=== PATIENT | male | born 1945 | race Caucasian/White ===

== ENCOUNTER 2023-12-19 16:06 | Inpatient (IN) | payer OTHER, MEDICAID ==
[~2023-12-19] VITALS: Ht 162.6 cm; Wt 74.4 kg
[2023-12-19 16:06] VITALS: BP_SYST 138; PULSE 132; RESP 20; TEMP 101.9; O2SAT 93
[2023-12-19] MEDS ORDERED: HEPARIN SODIUM,PORCINE 5,000 UNITS/ML VIAL IVP ONE (16:30)
[2023-12-19] MEDS ORDERED: HEPARIN 25,000 UNITS/D5W 250ML 250 ML IV ONE (16:30)
[2023-12-19 16:58] LABS: HEMATOCRIT 42.5 % (36-54); HEMOGLOBIN 14.2 g/dL (14.0-18.0); MEAN CORPUSCULAR HEMOGLOBIN 29 pg (27-31); MEAN CORPUSCULAR HGB CONC 33 % (32-36); MEAN CORPUSCULAR VOLUME 88 fL (79.0-98.0); PLATELET COUNT (AUTO) 206 K/uL (130-430); RED BLOOD CELL COUNT(AUTO) 4.84 MIL/uL (4.2-6.2); RED CELL DISTRIBUTION WIDTH 14.9 % (9.0-15.0); WHITE BLOOD COUNT (AUTO) 8.3 K/uL (4.8-10.8)
[2023-12-19 17:17] LABS: ANION GAP 22 (5-15); CALCIUM 8.8 mg/dL (8.4-11.0); CARBON DIOXIDE 15 mmol/L (23-29); CHLORIDE 98 mmol/L (98-107); CREATININE 1.55 mg/dL (0.55-1.30); GLUCOSE 194 mg/dL (74-106); POTASSIUM 3.9 mmol/L (3.5-5.1); SODIUM SERUM 135 mmol/L (136-145); UREA NITROGEN, BLOOD 29 mg/dL (8-21)
[2023-12-19 17:22] LABS: ALANINE AMINOTRANSFERASE 11 U/L (12-78); ALBUMIN 3.4 g/dL (3.4-4.8); ASPARTATE AMINOTRANSFERASE 39 U/L (10-37); BILIRUBIN,DIRECT 0.2 mg/dL (0.0-0.3); TOTAL BILIRUBIN 0.8 mg/dL (0.0-1.0); TOTAL PROTEIN, SERUM 8.5 g/dL (6.4-8.3)
[2023-12-19] MEDS: NACL 0.9% 1,000 ML IV ONE (17:36)
[2023-12-19 17:42] LABS: BLOOD GAS PCO2 22.9 mmHg (32.0-45.0); BLOOD GAS PH 7.327 (7.350-7.450); BLOOD GAS PO2 94.2 mmHg (75.0-100.0)
[2023-12-19 17:43] LABS: ABG O2 SAT% ESTIMATE 96.9 % (94.0-100.0); ALLEN'S TEST POSITIVE (P); BLOOD GAS HCO3 11.7 mmol/L (21.0-27.0)
[2023-12-19 17:52] LABS: BILIRUBIN,URINE NEGATIVE (NEGATIVE); BLOOD, URINE 1+ (NEGATIVE); CLARITY/URINE CLEAR (CLEAR); COLOR,URINE YELLOW (YELLOW); GLUCOSE,URINE 3+ (NEGATIVE); KETONES,URINE 3+ (NEGATIVE); LEUKOCYTE ESTERASE ,URINE NEGATIVE (NEGATIVE); NITRITE, URINE NEGATIVE (NEGATIVE); PROTEIN URINE TRACE (NEGATIVE); UROBILINOGEN,URINE 0.2 (0.2-1.0)
[2023-12-19 18:24] LABS: BACTERIA,URINE RARE /HPF (None Seen)
[2023-12-19] MEDS: IPRATROPIUM/ALBUTEROL SULFATE 3 ML AMPUL.NEB (DUONEB) INH ONE (18:26)
[2023-12-19] MEDS ORDERED: DULO30CA52 PO (18:29)
[2023-12-19] MEDS ORDERED: MIDO5TAB4 PO (18:29)
[2023-12-19] MEDS ORDERED: CYAN-45 PO (18:29)
[2023-12-19] MEDS ORDERED: EMPA25TA PO (18:29)
[2023-12-19] MEDS ORDERED: METF-1069 PO (18:29)
[2023-12-19] MEDS ORDERED: ASPI-1393 PO (18:29)
[2023-12-19] MEDS ORDERED: DULA4.5P SUBCUT (18:29)
[2023-12-19] MEDS ORDERED: ICOS1CAP PO (18:29)
[2023-12-19] MEDS ORDERED: FAMO40TA7 PO (18:29)
[2023-12-19] MEDS ORDERED: TAMS0.4C96 PO (18:29)
[2023-12-19] MEDS ORDERED: FERROUS (18:29)
[2023-12-19] MEDS ORDERED: ESCI-6 PO (18:29)
[2023-12-19] MEDS ORDERED: SIMV-345 PO (18:29)
[2023-12-19] MEDS ORDERED: PREG150C47 PO (18:29)
[2023-12-19 18:32] LABS: COVID19 ANTIGEN SOFIA FIA NEGATIVE (NEGATIVE)
[2023-12-19 18:33] LABS: INFLUENZA TYPE B NEGATIVE (NEGATIVE)
[2023-12-19 18:41] LABS: INFLUENZA TYPE A POSITIVE (NEGATIVE)
[2023-12-19] MEDS ORDERED: cefTRIAXone 1 GM in D5W 50 ML IV ONE (18:45)
[2023-12-19] MEDS ORDERED: cefTRIAXone 1 GM VIAL ONE (18:56)
[2023-12-19 18:59] LABS: BAND % (MANUAL) 18 % (0-6); BASOPHILS % (MANUAL) 0 % (0-2); EOSINOPHILS % (MANUAL) 0 % (0-7); LYMPHOCYTES % (MANUAL) 4 % (20-46); MONOCYTES % (MANUAL) 3 % (0-11); PLATELET ESTIMATE ADEQUATE (ADEQUATE)
[2023-12-19] MEDS ORDERED: D5NS 1,000 ML IV SCH (19:00)
[2023-12-19] MEDS: NACL 0.9% 1,000 ML IV SCH (20:15)
[2023-12-19 20:50] VITALS: BP_SYST 110; PULSE 121; RESP 20; TEMP 98.9
[2023-12-19] MEDS ORDERED: ACETAMINOPHEN 325 MG TABLET PO PRN (22:30)
[2023-12-19] MEDS ORDERED: HYDROcodone/ACETAMIN 5-325 MG TAB (NORCO/ VICODIN) PO PRN (22:30)
[2023-12-19] MEDS ORDERED: NALOXONE HCL 0.4 MG/ML AMP (NARCAN) IVP PRN ×2 (22:30)
[2023-12-19] MEDS ORDERED: ONDANSETRON HCL 4 MG/2 ML VIAL IVP PRN (22:30)
[2023-12-19] MEDS ORDERED: HYDROcodone/ACETAMIN 10-325 MG TAB PO PRN (22:30)
[2023-12-20] VITALS (8 sets, daily range): BP systolic 103–132; PULSE 61–134; RESP 17–21; TEMP 97.2–99.3; O2SAT 93–98
[2023-12-20 05:05] LABS: BASOPHILS % (AUTO) 0.1 % (0.0-2.0); HEMATOCRIT 40.3 % (36-54); HEMOGLOBIN 13.5 g/dL (14.0-18.0); LYMPHOCYTES # (AUTO) 0.5 K/uL (1.0-5.5); LYMPHOCYTES % (AUTO) 4.7 % (20.5-51.5); MEAN CORPUSCULAR HEMOGLOBIN 30 pg (27-31); MEAN CORPUSCULAR HGB CONC 34 % (32-36); MEAN CORPUSCULAR VOLUME 88 fL (79.0-98.0); MONOCYTES % (AUTO) 10.3 % (1.7-9.3); NEUTROPHILS # (AUTO) 8.4 K/uL (1.8-7.7); NEUTROPHILS % (AUTO) 84.9 % (40.0-70.0); PLATELET COUNT (AUTO) 222 K/uL (130-430); RED BLOOD CELL COUNT(AUTO) 4.57 MIL/uL (4.2-6.2); WHITE BLOOD COUNT (AUTO) 9.9 K/uL (4.8-10.8)
[2023-12-20 05:28] LABS: ANION GAP 23 (5-15); CALCIUM 8.4 mg/dL (8.4-11.0); CARBON DIOXIDE 12 mmol/L (23-29); CHLORIDE 100 mmol/L (98-107); CREATININE 1.74 mg/dL (0.55-1.30); GLUCOSE 208 mg/dL (74-106); POTASSIUM 4.2 mmol/L (3.5-5.1); SODIUM SERUM 135 mmol/L (136-145); UREA NITROGEN, BLOOD 30 mg/dL (8-21)
[2023-12-20] MEDS ORDERED: FERR-69 PO (06:57)
[2023-12-20] MEDS: INSULIN REGULAR, HUMAN 100 UNITS/ML, 3 ML VIAL (humuLIN R) SUBCUT PRN (07:01)
[2023-12-20] MEDS: CYANOCOBALAMIN (VITAMIN B-12) 1,000 MCG TABLET PO SCH (08:19)
[2023-12-20] MEDS: TAMSULOSIN HCL 0.4 MG CAP PO SCH (08:19)
[2023-12-20] MEDS: ASPIRIN 81 MG TABLET(ECOTRIN) PO SCH (08:19)
[2023-12-20] MEDS: FAMOTIDINE 20 MG TABLET PO SCH (08:20)
[2023-12-20] MEDS: CITALOPRAM HYDROBROMIDE 20 MG TABLET PO SCH (08:20)
[2023-12-20] MEDS: MIDODRINE HCL 5 MG TABLET (PROAMATINE) PO SCH (08:20)
[2023-12-20] MEDS: DULoxetine HCL 30 MG CAPSULE.DR (CYMBALTA) PO SCH (08:20)
[2023-12-20] MEDS: PREGABALIN 75 MG CAPSULE (LYRICA) PO SCH (08:20)
[2023-12-20] MEDS ORDERED: NON-FORMULARY MEDICATION (Icosapent Ethyl (Vascepa) 2 CAP) PO SCH (09:00)
[2023-12-20] MEDS: EMPAGLIFLOZIN 10 MG TABLET PO SCH (11:24)
[2023-12-20] MEDS: AZITHROMYCIN 500 MG in NS 250 ML IV ONE (13:19)
[2023-12-20] MEDS: OSELTAMIVIR PHOSPHATE 6 MG/1 ML, 60 ML SUSP PO ONE (13:25)
[2023-12-20] MEDS: SIMVASTATIN 40 MG TABLET PO SCH (21:23)
[2023-12-20] MEDS: cefTRIAXone 1 GM IVPB PREMIX 50 ML IV SCH (21:24)
[2023-12-20] MEDS: OSELTAMIVIR PHOSPHATE 6 MG/1 ML, 60 ML SUSP PO SCH (21:24)
[2023-12-20] MEDS: LORazepam 2 MG/ML VIAL IVP PRN (21:25)
[2023-12-20] MEDS: FUROSEMIDE 20 MG/2 ML VIAL IVP ONE (22:16)
[2023-12-20] MEDS: IPRATROPIUM/ALBUTEROL SULFATE 3 ML AMPUL.NEB (DUONEB) ONE (22:37)
[2023-12-21] VITALS (8 sets, daily range): BP systolic 94–109; PULSE 94–115; RESP 18–24; TEMP 96.5–97.1; O2SAT 96–98
[2023-12-21 04:29] LABS: ERYTHROCYTE SEDIMENTATION RATE 121 MM/HR (0-15)
[2023-12-21 04:46] LABS: BASOPHILS % (AUTO) 0.1 % (0.0-2.0); HEMATOCRIT 39.7 % (36-54); HEMOGLOBIN 13.1 g/dL (14.0-18.0); LYMPHOCYTES # (AUTO) 0.7 K/uL (1.0-5.5); LYMPHOCYTES % (AUTO) 5.5 % (20.5-51.5); MEAN CORPUSCULAR HEMOGLOBIN 29 pg (27-31); MEAN CORPUSCULAR HGB CONC 33 % (32-36); MEAN CORPUSCULAR VOLUME 88 fL (79.0-98.0); MONOCYTES # (AUTO) 1.5 K/uL (0.0-1.0); MONOCYTES % (AUTO) 11.3 % (1.7-9.3); NEUTROPHILS # (AUTO) 10.9 K/uL (1.8-7.7); NEUTROPHILS % (AUTO) 83.1 % (40.0-70.0); PLATELET COUNT (AUTO) 254 K/uL (130-430); RED BLOOD CELL COUNT(AUTO) 4.54 MIL/uL (4.2-6.2); RED CELL DISTRIBUTION WIDTH 15.2 % (9.0-15.0); WHITE BLOOD COUNT (AUTO) 13.1 K/uL (4.8-10.8)
[2023-12-21 05:36] LABS: ANION GAP 29 (5-15); CALCIUM 8.5 mg/dL (8.4-11.0); CHLORIDE 102 mmol/L (98-107); GLUCOSE 183 mg/dL (74-106); POTASSIUM 4.1 mmol/L (3.5-5.1); SODIUM SERUM 138 mmol/L (136-145); TOTAL BILIRUBIN 0.5 mg/dL (0.0-1.0); UREA NITROGEN, BLOOD 38 mg/dL (8-21)
[2023-12-21 05:37] LABS: ALANINE AMINOTRANSFERASE 15 U/L (12-78); ALBUMIN 2.8 g/dL (3.4-4.8); ASPARTATE AMINOTRANSFERASE 37 U/L (10-37); PHOSPHORUS 4.5 mg/dL (2.7-4.5); TOTAL PROTEIN, SERUM 7.8 g/dL (6.4-8.3)
[2023-12-21 05:41] LABS: CARBON DIOXIDE 7 mmol/L (23-29)
[2023-12-21] MEDS: IPRATROPIUM/ALBUTEROL SULFATE 3 ML AMPUL.NEB (DUONEB) INH PRN (06:57)
[2023-12-21] MEDS: AZITHROMYCIN 500 MG in NS 250 ML IV SCH (08:54)
[2023-12-21] MEDS: SODIUM BICARBONATE 8.4% JECT 100 MEQ in D5W 1,000 ML IVP SCH (10:27)
[2023-12-22] VITALS (7 sets, daily range): BP systolic 96–115; PULSE 101–106; RESP 18–20; TEMP 97–98.8; O2SAT 93–98
[2023-12-22 07:21] LABS: BASOPHILS % (AUTO) 0.1 % (0.0-2.0); EOSINOPHILS % (AUTO) 0.1 % (0.0-4.0); LYMPHOCYTES # (AUTO) 0.9 K/uL (1.0-5.5); LYMPHOCYTES % (AUTO) 6.6 % (20.5-51.5); MEAN CORPUSCULAR HEMOGLOBIN 29 pg (27-31); MEAN CORPUSCULAR HGB CONC 33 % (32-36); MEAN CORPUSCULAR VOLUME 86 fL (79.0-98.0); MONOCYTES % (AUTO) 6.9 % (1.7-9.3); NEUTROPHILS # (AUTO) 12.3 K/uL (1.8-7.7); NEUTROPHILS % (AUTO) 86.3 % (40.0-70.0); PLATELET COUNT (AUTO) 251 K/uL (130-430); RED BLOOD CELL COUNT(AUTO) 4.91 MIL/uL (4.2-6.2); RED CELL DISTRIBUTION WIDTH 15.4 % (9.0-15.0); WHITE BLOOD COUNT (AUTO) 14.3 K/uL (4.8-10.8)
[2023-12-22 07:43] LABS: ERYTHROCYTE SEDIMENTATION RATE 93 MM/HR (0-15)
[2023-12-22 07:55] LABS: ANION GAP 15 (5-15); CALCIUM 8.7 mg/dL (8.4-11.0); CARBON DIOXIDE 19 mmol/L (23-29); CHLORIDE 101 mmol/L (98-107); CREATININE 1.49 mg/dL (0.55-1.30); GLUCOSE 191 mg/dL (74-106); PHOSPHORUS 1.9 mg/dL (2.7-4.5); POTASSIUM 3.5 mmol/L (3.5-5.1); SODIUM SERUM 135 mmol/L (136-145); UREA NITROGEN, BLOOD 33 mg/dL (8-21)
[2023-12-22 13:53] LABS: ABG O2 SAT% ESTIMATE 89.4 % (94.0-100.0); BLOOD GAS BASE EXCESS -0.7 mmol/L (-3.0-3.0); BLOOD GAS HCO3 20.5 mmol/L (21.0-27.0); BLOOD GAS PCO2 25.7 mmHg (32.0-45.0)
[2023-12-22 14:03] LABS: BLOOD GAS PH 7.519 (7.350-7.450); BLOOD GAS PO2 49.3 mmHg (75.0-100.0)
[2023-12-22] MEDS: HEPARIN SODIUM,PORCINE 5,000 UNITS/ML VIAL SUBCUT ONE (17:10)
[2023-12-22] MEDS: HEPARIN SODIUM,PORCINE 5,000 UNITS/ML VIAL SUBCUT SCH (23:42)
[2023-12-23] VITALS (8 sets, daily range): BP systolic 97–108; PULSE 75–105; RESP 18–20; TEMP 97.7–99.7; O2SAT 92–95
[2023-12-23 06:33] LABS: BASOPHILS % (AUTO) 0.3 % (0.0-2.0); EOSINOPHILS % (AUTO) 0.3 % (0.0-4.0); HEMATOCRIT 38.6 % (36-54); HEMOGLOBIN 13.1 g/dL (14.0-18.0); LYMPHOCYTES # (AUTO) 1.5 K/uL (1.0-5.5); LYMPHOCYTES % (AUTO) 15.3 % (20.5-51.5); MEAN CORPUSCULAR HEMOGLOBIN 29 pg (27-31); MEAN CORPUSCULAR HGB CONC 34 % (32-36); MEAN CORPUSCULAR VOLUME 84 fL (79.0-98.0); MONOCYTES % (AUTO) 9.9 % (1.7-9.3); NEUTROPHILS # (AUTO) 7.5 K/uL (1.8-7.7); NEUTROPHILS % (AUTO) 74.2 % (40.0-70.0); PLATELET COUNT (AUTO) 264 K/uL (130-430); RED BLOOD CELL COUNT(AUTO) 4.58 MIL/uL (4.2-6.2); RED CELL DISTRIBUTION WIDTH 15.1 % (9.0-15.0)
[2023-12-23 06:40] LABS: ANION GAP 13 (5-15); CALCIUM 8.4 mg/dL (8.4-11.0); CARBON DIOXIDE 23 mmol/L (23-29); CHLORIDE 103 mmol/L (98-107); CREATININE 1.18 mg/dL (0.55-1.30); GLUCOSE 129 mg/dL (74-106); PHOSPHORUS 2.2 mg/dL (2.7-4.5); POTASSIUM 3.3 mmol/L (3.5-5.1); SODIUM SERUM 139 mmol/L (136-145); UREA NITROGEN, BLOOD 26 mg/dL (8-21)
[2023-12-23 07:23] LABS: WHITE BLOOD COUNT (AUTO) 10.1 K/uL (4.8-10.8)
[2023-12-23 07:42] LABS: ERYTHROCYTE SEDIMENTATION RATE 102 MM/HR (0-15)
[2023-12-23] MEDS: PATIENT'S OWN CAP PO SCH (09:00)
[2023-12-23] MEDS: K PHOS 15 MM in NS 250 ML IV ONE (12:53)
[2023-12-24] VITALS (8 sets, daily range): BP systolic 100–113; PULSE 82–105; RESP 18–20; TEMP 96.7–98.6; O2SAT 90–96
[2023-12-24 04:42] LABS: ERYTHROCYTE SEDIMENTATION RATE 33 MM/HR (0-15)
[2023-12-24 04:53] LABS: BASOPHILS % (AUTO) 0.5 % (0.0-2.0); EOSINOPHILS # (AUTO) 0.1 K/uL (0.0-0.4); EOSINOPHILS % (AUTO) 1.3 % (0.0-4.0); HEMATOCRIT 36.6 % (36-54); HEMOGLOBIN 12.6 g/dL (14.0-18.0); LYMPHOCYTES # (AUTO) 2.1 K/uL (1.0-5.5); LYMPHOCYTES % (AUTO) 22.3 % (20.5-51.5); MEAN CORPUSCULAR HEMOGLOBIN 29 pg (27-31); MEAN CORPUSCULAR HGB CONC 34 % (32-36); MEAN CORPUSCULAR VOLUME 85 fL (79.0-98.0); MONOCYTES # (AUTO) 1.1 K/uL (0.0-1.0); MONOCYTES % (AUTO) 11.7 % (1.7-9.3); NEUTROPHILS # (AUTO) 5.9 K/uL (1.8-7.7); NEUTROPHILS % (AUTO) 64.2 % (40.0-70.0); PLATELET COUNT (AUTO) 301 K/uL (130-430); RED BLOOD CELL COUNT(AUTO) 4.33 MIL/uL (4.2-6.2); WHITE BLOOD COUNT (AUTO) 9.2 K/uL (4.8-10.8)
[2023-12-24 05:05] LABS: ALANINE AMINOTRANSFERASE 15 U/L (12-78); ALBUMIN 2.2 g/dL (3.4-4.8); ANION GAP 11 (5-15); ASPARTATE AMINOTRANSFERASE 31 U/L (10-37); CALCIUM 8.2 mg/dL (8.4-11.0); CARBON DIOXIDE 26 mmol/L (23-29); CHLORIDE 104 mmol/L (98-107); CREATININE 1.22 mg/dL (0.55-1.30); GLUCOSE 153 mg/dL (74-106); PHOSPHORUS 2.8 mg/dL (2.7-4.5); POTASSIUM 3.2 mmol/L (3.5-5.1); SODIUM SERUM 141 mmol/L (136-145); TOTAL BILIRUBIN 0.4 mg/dL (0.0-1.0); TOTAL PROTEIN, SERUM 6.9 g/dL (6.4-8.3); UREA NITROGEN, BLOOD 22 mg/dL (8-21)
[2023-12-24] MEDS: POTASSIUM CHLORIDE 20 MEQ TABLET.ER PO ONE (12:51)
[2023-12-25 00:22] VITALS: BP_SYST 103; PULSE 99; RESP 18; TEMP 97.7; O2SAT 93
[2023-12-25 05:21] LABS: BASOPHILS # (AUTO) 0.1 K/uL (0.0-0.2); EOSINOPHILS # (AUTO) 0.3 K/uL (0.0-0.4); HEMATOCRIT 35.4 % (36-54); HEMOGLOBIN 12.2 g/dL (14.0-18.0); LYMPHOCYTES # (AUTO) 2.1 K/uL (1.0-5.5); MEAN CORPUSCULAR HEMOGLOBIN 29 pg (27-31); MEAN CORPUSCULAR HGB CONC 34 % (32-36); MEAN CORPUSCULAR VOLUME 85 fL (79.0-98.0); MONOCYTES # (AUTO) 1.1 K/uL (0.0-1.0); MONOCYTES % (AUTO) 10.6 % (1.7-9.3); NEUTROPHILS # (AUTO) 6.8 K/uL (1.8-7.7); NEUTROPHILS % (AUTO) 65.4 % (40.0-70.0); PLATELET COUNT (AUTO) 339 K/uL (130-430); RED BLOOD CELL COUNT(AUTO) 4.17 MIL/uL (4.2-6.2); RED CELL DISTRIBUTION WIDTH 15.1 % (9.0-15.0); WHITE BLOOD COUNT (AUTO) 10.5 K/uL (4.8-10.8)
[2023-12-25 05:34] LABS: ERYTHROCYTE SEDIMENTATION RATE 104 MM/HR (0-15)
[2023-12-25 05:40] LABS: ANION GAP 13 (5-15); CALCIUM 8.1 mg/dL (8.4-11.0); CARBON DIOXIDE 24 mmol/L (23-29); CHLORIDE 105 mmol/L (98-107); CREATININE 0.99 mg/dL (0.55-1.30); GLUCOSE 119 mg/dL (74-106); POTASSIUM 3.5 mmol/L (3.5-5.1); SODIUM SERUM 142 mmol/L (136-145); UREA NITROGEN, BLOOD 20 mg/dL (8-21)
[2023-12-25 08:00] VITALS: BP_SYST 125; PULSE 101; RESP 16; TEMP 98.1; O2SAT 95
[2023-12-25 11:03] VITALS: BP_SYST 128; PULSE 100; RESP 16; TEMP 97.1; O2SAT 91
[2023-12-25 15:02] VITALS: BP_SYST 126; PULSE 103; RESP 16; TEMP 97.6; O2SAT 93
[2023-12-25 16:57] LABS: ABG O2 SAT% ESTIMATE 89.4 % (94.0-100.0); BLOOD GAS BASE EXCESS 1.4 mmol/L (-3.0-3.0); BLOOD GAS HCO3 23.7 mmol/L (21.0-27.0)
[2023-12-25 17:00] LABS: ALLEN'S TEST POSITIVE (P); BLOOD GAS PH 7.501 (7.350-7.450); BLOOD GAS PO2 50.6 mmHg (75.0-100.0)
[2023-12-25 19:55] VITALS: BP_SYST 119; PULSE 101; RESP 16; TEMP 97.9; O2SAT 91
[2023-12-25 21:05] VITALS: O2SAT 91
[2023-12-25] MEDS: NYSTATIN 15 GM TOPICAL POWDER TP SCH (23:14)
[2023-12-26] VITALS (8 sets, daily range): BP systolic 100–133; PULSE 77–101; RESP 18–20; TEMP 96.6–97.7; O2SAT 91–94
== END 2023-12-26 21:50 | disposition home health service (06) | DRG 871 ==
LOC: SED 16:06 → STU 19:10 → SMU 12-22 02:10
PROVIDERS: ADMIT Preventive Medicine Preventive Medicine/Occupational Environmental Medicine; ATTEND Preventive Medicine Preventive Medicine/Occupational Environmental Medicine
DX: A41.9 Sepsis, unspecified organism (principal); E11.10 Type 2 diabetes mellitus with ketoacidosis without coma; G93.41 Metabolic encephalopathy; J10.08 Influenza due to other identified influenza virus with other specified pneumonia; J96.01 Acute respiratory failure with hypoxia; J18.9 Pneumonia, unspecified organism; N39.0 Urinary tract infection, site not specified; N17.9 Acute kidney failure, unspecified; E87.1 Hypo-osmolality and hyponatremia; Z20.822 Contact with and (suspected) exposure to COVID-19; D64.9 Anemia, unspecified; E11.22 Type 2 diabetes mellitus with diabetic chronic kidney disease; E78.5 Hyperlipidemia, unspecified; K21.9 Gastro-esophageal reflux disease without esophagitis; E83.39 Other disorders of phosphorus metabolism; E83.41 Hypermagnesemia; E83.51 Hypocalcemia; E87.6 Hypokalemia; E88.09 Other disorders of plasma-protein metabolism, not elsewhere classified; F03.90 Unspecified dementia, unspecified severity, without behavioral disturbance, psychotic disturbance, mood disturbance, and anxiety; I12.9 Hypertensive chronic kidney disease with stage 1 through stage 4 chronic kidney disease, or unspecified chronic kidney disease; I25.10 Atherosclerotic heart disease of native coronary artery without angina pectoris; N18.9 Chronic kidney disease, unspecified; Z79.01 Long term (current) use of anticoagulants; Z87.01 Personal history of pneumonia (recurrent); Z95.1 Presence of aortocoronary bypass graft; Z79.82 Long term (current) use of aspirin; Z79.84 Long term (current) use of oral hypoglycemic drugs; Z79.899 Other long term (current) drug therapy
CPT/HCPCS: 36415; 36600; 70450-TC; 71045; 76770; 80048; 80053; 80076; 81000; 81001; 81015; 82800-TC; 82803; 82948; 83605; 83735; 83880; 84100; 84484; 85007; 85025; 85027; 85651; 87040; 87086; 94640; 94760; 97110-GP; 97116-GP; 97530-GP; 99285; G0378; G9035; J0456; J0696; J1644; J1815; J1940; J2060; J7050; J7060